=== PATIENT | male | born 2000 | race Caucasian/White ===

== ENCOUNTER 2021-07-25 15:58 | Emergency (ER) | payer SELFPAY ==
[2021-07-25] MEDS ORDERED: Morphine 4 MG/ML VIAL ONE (17:41)
[2021-07-25] MEDS ORDERED: cefTRIAXone\\ROCEPHIN 500 MG VIAL ONE (19:10)
[2021-07-25 19:17] LABS: Bilirubin Neg (Negative); Blood, Urine Negative (Negative); Clarity Clear (Clear); Glucose, Urine (Dipstick) Normal (Negative); Ketone, Urine 5 mg/dL (Negative); Leukocyte 25 (Negative); Nitrite Negative (Negative); Protein, Urine (Dipstick) 15 mg/dl (Neg-Trace); Specific Gravity, Urine 1.015 (1.002-1.036); Urobilinogen Normal mg/dL (Less than 2)
[2021-07-25 19:39] LABS: Bacteria/HPF Rare-Few HPF (None Seen); Mucous/LPF 1+ LPF (<2+); RBC/HPF None Seen HPF (0-3); Squamous Epithelial 0-3 HPF (0-3)
== END 2021-07-25 19:15 | disposition home or self-care (01) ==
LOC: CSHERS 15:58
DX: N45.1 Epididymitis (principal)
CPT/HCPCS: 76870; 81003; 81015; 93976; 96372; J0696; J2270